=== PATIENT | female | born 1940 | race Caucasian/White ===

== ENCOUNTER 2023-11-09 00:48 | Inpatient (IN) | payer OTHER, MEDICARE ==
[~2023-11-09] VITALS: Ht 152.4 cm; Wt 56.3 kg
[2023-11-09] VITALS (7 sets, daily range): BP systolic 112–153; PULSE 79–103; RESP 16–20; TEMP 96.5–98.1; O2SAT 93–98
[2023-11-09 01:43] LABS: HEMOGLOBIN 8.2 g/dL (12.0-16.0); WHITE BLOOD COUNT (AUTO) 2.1 K/uL (4.8-10.8)
[2023-11-09 01:54] LABS: HEMATOCRIT 24.2 % (36-48); MEAN CORPUSCULAR HEMOGLOBIN 35 pg (27-31); MEAN CORPUSCULAR HGB CONC 34 % (32-36); MEAN CORPUSCULAR VOLUME 104 fL (79.0-98.0); PLATELET COUNT (AUTO) 192 K/uL (130-430); RED BLOOD CELL COUNT(AUTO) 2.34 MIL/uL (4.2-6.2); RED CELL DISTRIBUTION WIDTH 16.4 % (9.0-15.0)
[2023-11-09 02:09] LABS: ALANINE AMINOTRANSFERASE 17 U/L (12-78); ANION GAP 8 (5-15); ASPARTATE AMINOTRANSFERASE 22 U/L (10-37); BILIRUBIN,DIRECT 0.1 mg/dL (0.0-0.3); CARBON DIOXIDE 27 mmol/L (23-29); CHLORIDE 103 mmol/L (98-107); GLUCOSE 102 mg/dL (74-106); POTASSIUM 3.9 mmol/L (3.5-5.1); SODIUM SERUM 138 mmol/L (136-145); TOTAL BILIRUBIN 0.3 mg/dL (0.0-1.0); TOTAL PROTEIN, SERUM 6.9 g/dL (6.4-8.3); UREA NITROGEN, BLOOD 20 mg/dL (8-21)
[2023-11-09 02:55] LABS: LYMPHOCYTES % (MANUAL) 50 % (20-46); MONOCYTES % (MANUAL) 20 % (0-11); PLATELET ESTIMATE ADEQUATE (ADEQUATE)
[2023-11-09] MEDS ORDERED: MORPHINE 2 MG/ML INJ. SYRINGE IVP PRN (03:00)
[2023-11-09] MEDS: NACL 0.9% 1,000 ML IV ONE (03:00)
[2023-11-09] MEDS ORDERED: ACETAMINOPHEN 325 MG TABLET PO PRN (03:00)
[2023-11-09] MEDS ORDERED: GABA-529 PO (03:36)
[2023-11-09] MEDS ORDERED: PRIM250T8 PO (03:36)
[2023-11-09] MEDS ORDERED: NITR0.4T47 SL (03:36)
[2023-11-09] MEDS ORDERED: LATA2.5D14 EACH EYE (03:36)
[2023-11-09] MEDS ORDERED: LEVO100T9 PO (03:36)
[2023-11-09] MEDS ORDERED: PROP60CA40 PO (03:38)
[2023-11-09] MEDS ORDERED: VALS160T2 PO (03:38)
[2023-11-09] MEDS ORDERED: ASPI-1393 PO (03:38)
[2023-11-09] MEDS: ASPIRIN 81 MG TAB.CHEW PO SCH (08:55)
[2023-11-09] MEDS: HEPARIN SODIUM,PORCINE 5,000 UNITS/ML VIAL SUBCUT SCH (08:56)
[2023-11-09] MEDS: LOSARTAN POTASSIUM 50 MG TABLET (COZAAR) PO ONE (15:20)
[2023-11-09] MEDS: PROPRANOLOL HCL (INDERAL LA 60MG) PO ONE (15:20)
== END 2023-11-09 17:20 | disposition home or self-care (01) | DRG 311 ==
LOC: SED 00:48 → STU 02:47
PROVIDERS: ADMIT Student in an Organized Health Care Education/Training Program; ATTEND Student in an Organized Health Care Education/Training Program
DX: I20.0 Unstable angina (principal); D63.8 Anemia in other chronic diseases classified elsewhere; Z79.899 Other long term (current) drug therapy; Z88.8 Allergy status to other drugs, medicaments and biological substances
CPT/HCPCS: 36415; 71045; 80048; 80076; 84484; 85007; 85027; 93005; 93306; 99285; G0378; J1644